=== PATIENT | male | born 1950 | race Hispanic/Latino ===

== ENCOUNTER 2018-03-12 06:44 | Emergency (ER) | payer BC ==
[2018-03-12 06:58] VITALS: BMI 33.1
[2018-03-12 07:01] VITALS: BP 149/84; PULSE 69; RESP 18; TEMP 97.6; O2SAT 98
--- NOTE | 2018-03-12 07:39 | ED PDOC ---
Lower Extremity Pain/Injury Time Seen by Provider: 03/12/18 07:27 Chief Complaint (Nursing): Lower Extremity Problem/Injury Chief Complaint (Provider): r knee pain Additional Complaint(s): 67 yo m with history of htn DM here with c/o r knee pain status post fall 5 days ago when he tripped on something and fell onto his knee. he has been bearing weight on it but is still having pain in medial aspect of R knee. pt states at rest no pain, only when he ambulates he has pain. Past Medical History Vital Signs: Last Vital Signs Temp 97.6 F 03/12/18 06:58 Pulse 69 03/12/18 06:58 Resp 18 03/12/18 06:58 BP 149/84 03/12/18 06:58 Pulse Ox 98 03/12/18 06:58 - Medical History PMH: Diabetes, HTN - Surgical History Other surgeries: intestinal surgery - Family History Family History: States: Unknown Family Hx - Social History Current smoker - smoking cessation education provided: No Alcohol: None Drugs: Denies - Home Medications Home Medications: Ambulatory Orders Medication Instructions Recorded Fenofibrate,Micronized 134 mg PO DAILY 05/29/15 [Fenofibrate] Glipizide [Glipizide Xl] 5 mg PO BID 05/29/15 Losartan [Cozaar] 50 mg PO DAILY 05/29/15 RX: Aspirin [Aspirin Chewable] 81 mg PO DAILY 05/29/15 RX: Simvastatin [Zocor] 20 mg PO DAILY 05/29/15 SITagliptin [Januvia] 100 mg PO DAILY 05/29/15 - Allergies Allergies/Adverse Reactions: Allergies Allergy/AdvReac Type Severity Reaction Status Date / Time No Known Allergies Allergy Verified 03/12/18 06:58 Physical Exam - Physical Exam Appears: Positive for: Well, Non-toxic Head Exam: Positive for: ATRAUMATIC Skin: Positive for: Normal Color Extremity: Positive for: Other (r knee - medial aspect is where pt states its painful. however no swelling, erythema noted. no bony stepoff, FROM) Neurologic/Psych: Positive for: Alert, Oriented - ECG O2 Sat by Pulse Oximetry: 98 Medical Decision Making Medical Decision Making: knee pain sp falll 5 days ago xray. explained to pt that he will likely need MRI knee since xray only looks at bones. pt declined pain meds. cxray negative for fracture knee mobilizer placed for comfort pt aware, stable for dc instructed for outpatient follow up with orthopedist Disposition - Clinical Impression Clinical Impression: Knee sprain - Patient ED Disposition Is Patient to be Admitted: No Counseled Patient/Family Regarding: Studies Performed, Diagnosis, Need For Followup - Disposition Referrals: [facility] [Outside] Aquilino Lofton MD [Staff Provider] - Disposition: Routine/Home Disposition Time: 07:40 Condition: IMPROVED Additional Instructions: follow up with orthopedist within 2 days for further evaluation/MRI knee return to the ED with any worsening or concerning symptoms Instructions: Knee Sprain (DC) Forms: [employer] (Telugu)
--- NOTE | 2018-03-12 17:01 | RAD ---
Date of service: 03/12/2018 PROCEDURE: Right Knee Radiographs. HISTORY: pain sp fall 5 d COMPARISON: None. FINDINGS: BONES: No acute fracture or destructive bony lesion identified. JOINTS: Degenerative joint space narrowing seen only at the patellofemoral compartment with limited osteophyte development compatible with mild osteoarthritis. JOINT EFFUSION: None. OTHER FINDINGS: None. IMPRESSION: No acute fracture or dislocation. Mild right knee osteoarthritis.
== END 2018-03-12 09:17 | disposition home or self-care (01) ==
LOC: H.ER 06:44
DX: S83.8X1A Sprain of other specified parts of right knee, initial encounter (principal); W19.XXXA Unspecified fall, initial encounter; Y92.89 Other specified places as the place of occurrence of the external cause; E11.9 Type 2 diabetes mellitus without complications; I10 Essential (primary) hypertension; M17.11 Unilateral primary osteoarthritis, right knee; Z79.84 Long term (current) use of oral hypoglycemic drugs; Z79.82 Long term (current) use of aspirin